=== PATIENT | female | born 2000 | race Caucasian/White ===

== ENCOUNTER 2021-02-19 14:38 | Emergency (ER) | payer BC ==
[~2021-02-19] VITALS: Ht 162.6 cm; Wt 63.5 kg
[2021-02-19] MEDS ORDERED: ACETAMINOPHEN 325 MG TABLET PO ONE (15:00)
[2021-02-19 15:14] LABS: *URINE HCG, QUAL NEGATIVE (NEGATIVE)
[2021-02-19] MEDS ORDERED: ACETAMINOPHEN 325 MG TABLET ONE (15:15)
[2021-02-19] MEDS ORDERED: predniSONE 20 MG TABLET PO ONE (15:30)
[2021-02-19] MEDS ORDERED: predniSONE 10 MG TABLET ONE (15:34)
[2021-02-19] MEDS ORDERED: predniSONE 50 MG TABLET ONE (15:34)
[2021-02-19] MEDS ORDERED: PRED20TA PO (15:49)
[2021-02-19] MEDS ORDERED: ACET-2154 PO (15:49)
[2021-02-19] MEDS ORDERED: AMOX-430 PO (15:50)
[2021-02-19 16:09] VITALS: BP 133/40
== END 2021-02-19 16:09 | disposition home or self-care (01) ==
LOC: ER 14:42
DX: L30.9 Dermatitis, unspecified (principal)
CPT/HCPCS: 73130; 84703; 99284; J7512 ×2; A4663